=== PATIENT | male | born 1970 | race Caucasian/White ===

== ENCOUNTER 2017-04-25 13:12 | Outpatient (CLI) | payer OTHER ==
[2017-04-25 14:05] LABS: BASOPHILS # (AUTO) 0.2 K/uL (0.00-0.22); EOSINOPHILS # (AUTO) 0.2 K/uL (0-0.4); HEMATOCRIT 44.5 % (36-52); HEMOGLOBIN 14.8 g/dL (12.0-18.0); LYMPHOCYTES # (AUTO) 1.4 K/uL (2.0-11.5); MEAN CORPUSCULAR HEMOGLOBIN 30 pg (27-31); MEAN CORPUSCULAR HGB CONC 33 g/dL (33-37); MEAN CORPUSCULAR VOLUME 91 fL (80-94); MONOCYTES # (AUTO) 0.6 K/uL (0.8-1.0); NEUTROPHILS # (AUTO) 3.9 K/uL (1.8-7.7); PLATELET COUNT (AUTO) 259 K/uL (140-450); RED BLOOD CELL COUNT(AUTO) 4.88 MIL/uL (4.20-6.10); RED CELL DISTRIBUTION WIDTH 12.5 % (11.6-13.7); WHITE BLOOD COUNT (AUTO) 6.4 K/uL (4.8-10.8)
[2017-04-25 14:24] LABS: APPEARANCE,URINE CLEAR (CLEAR); BILIRUBIN,URINE 1+ (NEGATIVE); BLOOD, URINE NEGATIVE (NEGATIVE); LEUKOCYTE ESTERASE ,URINE NEGATIVE (NEGATIVE); NITRITE, URINE NEGATIVE (NEGATIVE); UGLUCOSE NEGATIVE (NEGATIVE)
[2017-04-25 14:33] LABS: COLOR,URINE AMBER (YELLOW)
[2017-04-25 14:39] LABS: ALBUMIN 4.1 g/dL (3.4-5.0); ANION GAP 6.8 (8-16); CARBON DIOXIDE 32.4 mmol/L (21-32); CHOL/HDL RATIO 6.6 (1-4.5); POTASSIUM 4.2 mmol/L (3.5-5.1); THYROID STIMULATING HORMONE 1.44 uIU/mL (0.34-3.74); TOTAL BILIRUBIN 0.5 mg/dL (0.0-1.0)
[2017-04-26 06:48] LABS: T4 (THYROXINE) 7.5 ug/dL (4.5-12.0)
== END 2017-04-25 20:01 | disposition home or self-care (01) ==
LOC: MLB 13:12
PROVIDERS: ATTEND Family Medicine
DX: E78.5 Hyperlipidemia, unspecified (principal); R20.2 Paresthesia of skin
CPT/HCPCS: 36415; 80053; 81003; 83036; 84436; 84443; 85025